=== PATIENT | male | born 1980 | race Caucasian/White ===

== ENCOUNTER 2019-08-31 15:27 | Outpatient (CLI) | payer OTHER | END 2019-08-31 23:59 | disposition home or self-care (01) | LOC: CVU 15:27 | PROVIDERS: ATTEND Nurse Practitioner Family | DX: I10 Essential (primary) hypertension (principal); E78.5 Hyperlipidemia, unspecified; Z87.891 Personal history of nicotine dependence | CPT/HCPCS: 93306 ==

== ENCOUNTER → 2020-11-02 | Outpatient (CLI) | payer MEDICAID | END | disposition home or self-care (01) | LOC: STAR 13:25 | PROVIDERS: ATTEND Internal Medicine Cardiovascular Disease | DX: Z20.828 Contact with and (suspected) exposure to other viral communicable diseases (principal) | CPT/HCPCS: 87635 ==

== ENCOUNTER 2020-11-07 05:52 | Day surgery (SDC) | payer MEDICAID, OTHER ==
[~2020-11-07] VITALS: Ht 167.6 cm; Wt 70.5 kg
[2020-11-07] MEDS ORDERED: SODIUM CHLORIDE 0.9% 1,000 ML IV ONE (08:00)
[2020-11-07] MEDS ORDERED: ONDANSETRON 2MG/ML, 2ML IV PRN (08:00)
[2020-11-07 08:02] VITALS: BP 115/64
[2020-11-07] MEDS ORDERED: LISI-167 PO (08:17)
[2020-11-07] MEDS ORDERED: GABA-827 PO (08:17)
[2020-11-07] MEDS ORDERED: BACL20TA PO (08:17)
[2020-11-07] MEDS ORDERED: APIX5TAB PO (08:17)
[2020-11-07 08:30] LABS: BASOPHILS % (AUTO) 1 % (0-1); EOSINOPHILS % (AUTO) 2 % (1-7); LYMPHOCYTES % (AUTO) 50 % (22-44); MEAN CORPUSCULAR HEMOGLOBIN 30.8 pg (27.5-34.5); MEAN CORPUSCULAR HGB CONC 33.7 g/dL (33.2-36.2); MEAN PLATELET VOLUME 9.6 fL (7.4-10.4); MONOCYTES % (AUTO) 8 % (2-9); NEUTROPHILS % (AUTO) 39 % (42-75); PLATELET COUNT 179 x10^3/uL (130-400); RED BLOOD COUNT 4.39 x10^6/uL (4.38-5.82); RED CELL DISTRIBUTION WIDTH 13.3 % (9.4-14.8)
[2020-11-07] MEDS ORDERED: PLEASE ENTER HEIGHT AND WEIGHT MC SCH (08:30)
[2020-11-07 08:36] LABS: MD NO
[2020-11-07 08:42] LABS: ANION GAP 4 mmol/L (5-15); CALCIUM 9.4 mg/dL (8.5-10.1); CHLORIDE 112 mmol/L (98-107)
[2020-11-07] MEDS ORDERED: SUGAMMADEX 200 MG/2 ML IVPush ONE ×2 (09:16→10:13)
[2020-11-07] MEDS ORDERED: SUCCINYLCHOLINE 20 MG/ML, 10ML ONE (09:16)
[2020-11-07] MEDS ORDERED: MIDAZOLAM 1 MG/ML, 2ML ONE (09:16)
[2020-11-07] MEDS ORDERED: FENTANYL PF 100 MCG/2ML ONE (09:16)
[2020-11-07] MEDS ORDERED: CEFAZOLIN 1,000 MG ONE (09:16)
[2020-11-07] MEDS ORDERED: ROCURONIUM 10MG/ML,5ML ONE (09:16)
[2020-11-07] MEDS ORDERED: PROPOFOL 10 MG/ML, 20ML ONE (09:16)
[2020-11-07] MEDS ORDERED: SODIUM CHLORIDE 0.9% PF 10ML ONE (09:16)
[2020-11-07] MEDS ORDERED: ONDANSETRON 2MG/ML, 2ML ONE (09:16)
[2020-11-07] MEDS ORDERED: DEXAMETHASONE 4 MG/ML, 5ML ONE (09:16)
[2020-11-07] MEDS ORDERED: HEPARIN 1,000 UNITS/ML, 10ML ONE ×2 (09:18)
[2020-11-07] MEDS ORDERED: LIDOCAINE 1%, 20ML ONE (09:33)
[2020-11-07] MEDS ORDERED: SODIUM CHLORIDE 0.9% 1,000 ML IV SCH (11:00)
[2020-11-07] MEDS ORDERED: APIXABAN 5 MG TABLET ONE (13:01)
== END 2020-11-07 13:55 | disposition home or self-care (01) ==
LOC: CACL 05:52
PROVIDERS: ATTEND Internal Medicine Cardiovascular Disease
DX: Q21.1 Atrial septal defect (principal); I63.9 Cerebral infarction, unspecified; I07.1 Rheumatic tricuspid insufficiency; I10 Essential (primary) hypertension; Z79.01 Long term (current) use of anticoagulants; Z79.899 Other long term (current) drug therapy
CPT/HCPCS: 36415; 76937; 80048; 85025; 85347; 93005; 93308; 93312; 93321; 93325; 93582; C1760; C1769; C1817; C1894; J0330; J0690; J1100; J1644; J2250; J2405; J2704; J3010

== ENCOUNTER → 2021-01-15 | Outpatient (CLI) | payer MEDICAID ==
[~2021-01-15] MED LIST: APIX5TAB PO; BACL20TA PO; GABA-827 PO; LISI-167 PO
== END | disposition home or self-care (01) ==
LOC: CVU 07:39
PROVIDERS: ATTEND Internal Medicine Cardiovascular Disease
DX: Z01.810 Encounter for preprocedural cardiovascular examination (principal); R06.02 Shortness of breath; I65.29 Occlusion and stenosis of unspecified carotid artery; Q21.1 Atrial septal defect
CPT/HCPCS: 93306